=== PATIENT | female | born 1965 | race Caucasian/White ===

== ENCOUNTER → 2016-10-22 | Outpatient (CLI) | payer BC ==
[~2016-10-22] MED LIST: ALBUAER19 INH; ATOR-24 PO; GLYB-108 PO; METF-384 PO
[2016-10-22 11:29] LABS: BASO % 0.5 %; BASO ABS # 0.03 K/uL (0-0.2); COMPLETE YES; EOS % 2.1 %; HEMATOCRIT 42.3 % (37-47); LYMPH % 41.3 %; LYMPH ABS # 2.31 K/uL (1.2-3.4); MEAN CELL VOLUME 91.2 fL (80-100); MEAN CORPUSCULAR HEMOGLOBIN 30.6 pg (25-34); MEAN CORPUSCULAR HGB CONC 33.6 g/dl (32-36); MEAN PLATELET VOLUME 9.3 fL (7.4-10.4); MONO % 6.4 %; NEUT % 49.7 %; PLATELET COUNT 279 K/uL (130-400); RED BLOOD COUNT 4.64 M/uL (4.2-5.4)
[2016-10-22 11:40] LABS: ALT/SGPT 29 U/L (12-78); BLOOD UREA NITROGEN 14 mg/dl (7-18); BUN/CREATININE RATIO 17.3 (10-20); CARBON DIOXIDE 25 mmol/L (21-32); CHLORIDE 108 mmol/L (98-107); CHOLESTEROL 129 mg/dl (0-200); CREATININE 0.83 mg/dl (0.60-1.20); ESTIMATED AVERAGE GLUCOSE 137 mg/dl; GLUCOSE 124 mg/dl (70-99); HA1C FLAG Normal (Normal); POTASSIUM 3.8 mmol/L (3.5-5.1); SODIUM 143 mmol/L (136-145)
[2016-10-22 11:50] LABS: ALB/GLOB RATIO 1.2 (0.9-2); ALKALINE PHOSPHATASE 75 U/L (45-117); AST/SGOT 20 U/L (15-37); CHOLESTEROL/HDL RATIO 2.2; HDL CHOLESTEROL 59 mg/dl; LDL CHOLESTEROL CALCULATED 52 mg/dl; THYROID STIMULATING HORMONE 0.715 uIu/ml (0.300-4.500); TRIGLYCERIDES 91 mg/dl (0-150); VERY LOW DENSITY LIPOPROT CALC 18 mg/dl
== END | disposition home or self-care (01) ==
LOC: C.LABBC 09:09
PROVIDERS: ATTEND Internal Medicine
DX: E11.9 Type 2 diabetes mellitus without complications (principal); E78.00 Pure hypercholesterolemia, unspecified

== ENCOUNTER → 2017-05-05 | Outpatient (CLI) | payer BC ==
[2017-05-05 13:28] LABS: URINE APPEARANCE CLEAR (CLEAR); URINE BILIRUBIN NEG (NEG); URINE COLOR YELLOW; URINE EPITHELIAL CELL AUTO 0-5 /lpf (0-5); URINE NITRITE NEG (NEG); URINE SPECIFIC GRAVITY 1.014 (1.000-1.030); UROBILINOGEN NEG (NEG); ZZUR CULT IF INDIC CLEAN CATCH NO
[2017-05-05 13:36] LABS: MANUAL MICROSCOPIC REQUIRED? NO; REVIEW REQ? NO
[2017-05-05 13:45] LABS: ESTIMATED AVERAGE GLUCOSE 140 mg/dl; HA1C FLAG Normal (Normal)
[2017-05-05 14:24] LABS: ALT/SGPT 21 U/L (12-78); BLOOD UREA NITROGEN 12 mg/dl (7-18); BUN/CREATININE RATIO 14.7 (10-20); CALCIUM 9.1 mg/dl (8.5-10.1); CARBON DIOXIDE 28 mmol/L (21-32); CHLORIDE 107 mmol/L (98-107); CHOLESTEROL 105 mg/dl (0-200); CREATININE 0.78 mg/dl (0.60-1.20); GLUCOSE 122 mg/dl (70-99); HDL CHOLESTEROL 53 mg/dl; LDL CHOLESTEROL CALCULATED 29 mg/dl; POTASSIUM 3.8 mmol/L (3.5-5.1); SODIUM 141 mmol/L (136-145); TRIGLYCERIDES 115 mg/dl (0-150); VERY LOW DENSITY LIPOPROT CALC 23 mg/dl
[2017-05-05 14:28] LABS: ALB/GLOB RATIO 1.2 (0.9-2); ALKALINE PHOSPHATASE 83 U/L (45-117); AST/SGOT 15 U/L (15-37)
== END | disposition home or self-care (01) ==
LOC: C.LABBC 09:22
PROVIDERS: ATTEND Physician Assistant Medical
DX: E11.9 Type 2 diabetes mellitus without complications (principal)

== ENCOUNTER → 2017-11-10 | Outpatient (CLI) | payer BC ==
[2017-11-10 11:14] LABS: HEMOGLOBIN A1C 6.7 % (4.5-5.6)
== END | disposition home or self-care (01) ==
LOC: C.LABBC 09:09
PROVIDERS: ATTEND Internal Medicine
DX: E11.9 Type 2 diabetes mellitus without complications (principal)

== ENCOUNTER 2025-08-13 07:28 | Observation (INO) ==
--- NOTE | 2025-08-13 08:35 | Emergency Department Note ---
Impression & Plan Dental abscess The patient was educated regarding today's findings. Conservative care measures were discussed. IV was established. Labs were obtained. CBC shows a normal white count. Chemistry panel shows essentially normal electrolytes. Normal BUN and creatinine. Unremarkable LFTs. Glucose at this time is 123. Consultation was obtained from Dr. Marroquin from oral maxillofacial. CT scan results were reviewed with him. Due to the patient being a diabetic and her current condition, he recommended admission with extraction of the tooth and decompression of the abscess tomorrow in the OR. The patient is agreeable. Hospitalist service was consulted for admission. Please see that dictation for final management. She was given Unasyn 3 g IV while in the ED. preoperative chest x-ray was also obtained. This was unremarkable. Care plan was discussed with Dr. Santana. ED Provider Note CHIEF COMPLAINT: Dental pain HISTORY OF PRESENT ILLNESS: This 60-year-old white female patient has had a progressive toothache for 3 days. she denies any trauma. She initially noticed swelling on her left lower jaw Thursday. It became worse on Thursday. She tried to use cold compresses on the area throughout the day on Thursday hopes it would resolve. Her pain increased. She denies any fevers or chills. She woke this morning with increased swelling in her lower jaw and significant discomfort. She is having difficulty opening her jaw secondary to discomfort in the mandible. She denies any difficulty swallowing. No difficulty with breathing or speech. The pain is now steady and severe and radiates to the cheek. She has been unable to see a dentist. Denies chills, sweats, or fever. No nausea or vomiting. there is a foul taste. Pain is 5/10. A male awning installer accompanies her today. REVIEW OF SYSTEMS: Head: No headache, injury or neck pain. Throat: No sore throat, dysphagia, or hoarseness. Neck: No stiffness, or swelling. Respiratory: No cough, change in sputum, wheezes, hemoptysis, shortness of breath, or stridor. PHYSICAL EXAM: Vital Signs: Temperature 36.0 pulse 113 BP 106/67 respirations 18 O2 sat 95% on room air. General: Well-developed, well-nourished, middle-aged white female, in no acute distress. She appears in some discomfort. she is sitting on a bed. Alert and oriented. Skin: Warm and dry with good turgor. No rashes or lesions. No ecchymosis or erythema. The patient is not diaphoretic. No abrasions. HEENT: Normocephalic atraumatic. Eyes PERRLA, EOMI. No conjunctiva or scleral injection. Nares patent bilaterally without turbinate enlargement. No significant drainage. No epistaxis. Oropharynx without erythema or exudate. Uvula midline, oral mucosa moist. No lesions present. The tooth in question, #18, is very carious and has a large portion of the central tooth missing. The gum tissue is tender around it. No edema or pointing. It is nonfluctuant. Tooth is not loose. Blood is expressible from the central tooth through the cavity, with pressure on the gumline. There is facial swelling as well as cervical lymphadenopathy. Heart: Heart RRR. No MGR. Peripheral pulses are 2+. Lungs: Lungs are clear to auscultation. No crackles rhonchi or wheezing. Good air movement. The patient is able to take a deep breath. Musculoskeletal: Gross motor function of the upper and lower extremities is intact and unremarkable. Data: CT scan imaging of the face, specifically looking at the mandible, was obtained. This was interpreted by me and read by radiology. The patient has indication for a 2.8cm x 0.3cm left mandibular dental abscess. There is also suspicion for developing cellulitis. DIAGNOSIS: left mandible dental abscess Past Med/Surg History Problem List (Updated 08/17/25 @ 16:13 by Wyatt Champion PA-C) Dental abscess (Acute) Acute dentin caries Bacterial oral infection History of colon polyps Asthma-COPD overlap syndrome Bronchiolitis Cough History of tobacco use Healthcare maintenance Hyperlipidemia (Chronic) Depression (Chronic) Type 2 diabetes mellitus (Chronic) Medical History Mandibular abscess Facial infection Migraines Asthma-COPD overlap syndrome well controlled w/ daily inhaler Hx of migraines HX- no issues > 22 yrs Hyperlipidemia Diabetes Surgical History History of incision and drainage (08/14/25) Left Sided Facial Incision and Drainage(Left) - Jose Marroquin DMD s Extraction of Teeth #6, 18(Left) - Jose Marroquin, DMD Hx of shoulder surgery RIGHT Hx of colonoscopy History of dilatation and curettage Family History Mother Myocardial infarction Asthma Hypertension Mother Chronic renal failure Coronary heart disease Diabetes Myocardial infarction Grandmother (Maternal) Cancer Brother Diabetes Hypertension Grandmother (Paternal) Hodgkins disease Father Hypertension Hypercholesterolemia Denies family history of Ovarian cancer Prostate cancer Breast cancer Colorectal cancer Social History Smoking Status: Current every day smoker Tobacco Type: Cigarettes Age Started Using Tobacco: 15; packs per day: 1; Cigarettes Per Day: 17 per day - advised; Second Hand Exposure: No; Do You Dip or Chew Tobacco: No; Hx Alcohol Use: No Hx Substance Use: No Preferred Language: Bengali Communication Ability: Effective Visual Impairment: No Limitations Hearing Ability: Normal Harvest Supervisor Required: No Beliefs That Will Affect Care: None marital status: Single Current Living Situation: Significant Other current occupational status: employed Feels Safe at Home: Yes Childhood Exposure to Second-Hand Smoke: No Diet: diabetic and regular caffeine: Yes Dental Care, Regularly: No Physical Activity Frequency: Daily Seatbelt Use: always Sunscreen Use: Yes Assistive Devices: Cane Allergies Allergies Allergy/AdvReac Type Severity Reaction Status Date / Time simvastatin AdvReac Intermediate MYALGIAS Verified 08/14/25 11:12 erythromycin base AdvReac Mild Nausea Verified 08/14/25 11:12 Home Meds Home Medications Medication Instructions Recorded Confirmed mecobalamin (vitamin B12) 1,000 1,000 mcg PO DAILY 04/28/24 08/13/25 mcg chewable tablet Previous Rx's Medication Instructions Recorded blood sugar diagnostic #100 ea 05/09/22 Flutter Valve #1 ea 03/02/23 albuterol sulfate 90 mcg/actuation 2 puff inhalation QID PRN 09/17/23 aerosol inhaler (Ventolin HFA) shortness of breath or wheezing #6.7 grams atorvastatin 40 mg tablet 40 mg PO DAILY #90 tabs 09/16/24 metformin 1,000 mg tablet 1,000 mg PO BID #180 tabs 10/03/24 dulaglutide 1.5 mg/0.5 mL See Rx Instructions subcut 01/04/25 subcutaneous pen injector .COMPLEX #6 mL fluticasone fur. 100 mcg-umeclid 1 inh inhalation DAILY #3 Inhalers 01/04/25 62.5 mcg-vilant 25 mcg inhalat.powder (Trelegy Ellipta) aspirin 81 mg tablet 81 mg PO DAILY #90 tabs 08/10/25 amoxicillin 875 mg-potassium 1 tab PO BID 7 days #14 tabs 08/15/25 clavulanate 125 mg tablet tramadol 50 mg tablet 50 mg PO BID PRN pain #6 tabs 08/15/25 Results & Data (ED) Vital Signs Vital Signs - 24 hr 08/13/25 07:34 Temperature 36 C L Temperature Source Temporal Artery Scan Pulse Rate 113 H Respiratory Rate 18 Respiratory Effort / Characteristics Non-Labored Respiratory Depth Normal Respiratory Pattern Regular Blood Pressure 106/67 Blood Pressure Mean 80 Pulse Oximetry 95 Oxygen Delivery Method Room Air Sepsis Recent Fever Within 48 Hours No Sepsis New/Unexplained Change in Mental Status N/A Sepsis Action Taken by Nursing No Action Required Home Medications Current Medication List: was personally reviewed by me Laboratory Data 08/14/25 06:16 08/14/25 06:16 Lab Results 08/13/25 Range/Units 08:20 WBC 9.18 (4.8-10.8) K/ul RBC 4.66 (4.20-5.40) M/uL Hgb 14.5 (12.0-16.0) g/dL Hct 43.7 (37.0-47.0) % MCV 93.8 (80.0-100.0) fL MCH 31.1 (25.0-34.0) pg MCHC 33.2 (32.0-36.0) g/dL RDW Std Deviation 47.0 H (36.4-46.3) fL RDW Coeff of Ellen 13.6 (11.5-14.5) % Plt Count 239 (130-400) K/uL MPV 9.5 (9.4-12.4) fL Immature Gran % (Auto) 0.4 % Neut % (Auto) 74.2 % Lymph % (Auto) 15.3 % Barrow % (Auto) 8.9 % Eos % (Auto) 0.7 % Baso % (Auto) 0.5 % Neut # (Auto) 6.81 H (1.40-6.50) K/uL Lymph # (Auto) 1.40 (1.20-3.40) K/uL Barrow # (Auto) 0.82 H (0.11-0.59) K/uL Eos # (Auto) 0.06 (0.00-0.50) K/uL Baso # (Auto) 0.05 (0.00-0.20) K/uL Immature Gran # (Auto) 0.04 (0.01-0.20) K/uL Sodium 141 (136-145) mmol/L Potassium 3.9 (3.5-5.1) mmol/L Chloride 109 H (98-107) mmol/L Carbon Dioxide 24 (21-32) mmol/L Anion Gap 8 (3-11) BUN 9 (6-23) mg/dl Creatinine 0.67 (0.6-1.2) mg/dl Est Cr Clr Drug Dosing 82.5 ml/min eGFR 99.38 BUN/Creatinine Ratio 13.4 (10-20) Glucose 123 H (70-99(Fasting)) mg/dl Calcium 9.2 (8.6-10.3) mg/dl Total Bilirubin 0.5 (0.2-1.0) mg/dl Direct Bilirubin 0.1 (0-0.2) mg/dl AST 9 L (13-39) U/L ALT 6 L (7-52) U/L Alkaline Phosphatase 59 (34-104) U/L Total Protein 6.8 (6.0-8.3) gm/dl Albumin 4.1 (3.4-5.0) gm/dl Globulin 2.7 (2.5-4.0) gm/dl Albumin/Globulin Ratio 1.5 (0.9-2) Administered Medications Discontinued Medications Atorvastatin Calcium (Atorvastatin 40 Mg Tab) 40 mg PO DAILY [facility] Stop: 09/13/25 08:59 Last Admin: 08/15/25 08:44 Dose: 40 mg Documented By: Admin: 08/14/25 07:44 Dose: Not Given Documented By: DOROTA Bupivacaine HCl (Bupivacaine/Epinephrine 0.5% 1:200,000 1.8 Ml Carp) Confirm Administered Dose 10.8 ml .ROUTE .[facility] ONE Stop: 08/14/25 11:18 Last Admin: 08/14/25 01:08 Dose: 3 ml Documented By: ARLENE Bupivacaine HCl/Epinephrine Bitart (Bupivacaine/Epinephrine 0.5% Mpf 1:200,000 10 Ml Vial) Confirm Administered Dose 30 ml .ROUTE .[facility]-MED ONE Stop: 08/14/25 11:33 Last Admin: 08/14/25 13:32 Dose: Not Given Documented By: DOROTA Chlorhexidine Gluconate (Chlorhexidine Gluconate 0.12% 480 Ml) 15 ml MT Q3HWA PRN PRN Reason: Prophylaxis Stop: 09/12/25 17:21 Last Admin: 08/14/25 21:07 Dose: 15 ml Documented By: KALEIGH Cyanocobalamin (Cyanocobalamin (B-12) 500 Mcg Tablet) 1,000 mcg PO DAILY SCOTT Stop: 09/13/25 08:59 Last Admin: 08/15/25 08:43 Dose: 1,000 mcg Documented By: Admin: 08/14/25 07:44 Dose: Not Given Documented By: DOROTA Fluticasone Furoate (Fluticasone Furoate 100mcg 14 Puffs/Inhaler) 1 puffs INH DAILY SCOTT Stop: 09/13/25 08:59 Last Admin: 08/15/25 08:43 Dose: 1 puffs Documented By: Admin: 08/14/25 07:58 Dose: 1 puffs Documented By: DOROTA Ampicillin Sodium/Sulbactam Sodium (Unasyn) 3,000 mg in 100 mls @ 200 mls/hr IV NOW STA Stop: 08/13/25 10:17 Last Infusion: 08/13/25 10:34 Dose: Infused Documented By: Admin: 08/13/25 09:57 Dose: 200 mls/hr Documented By: WES Lactated Ringer's (Lr) 1,000 mls @ 80 mls/hr IV .[id number] SCOTT Stop: 08/14/25 18:29 Last Infusion: 08/14/25 17:06 Dose: Infused Documented By: Admin: 08/14/25 05:50 Dose: 80 mls/hr Documented By: NICOLE Ampicillin Sodium/Sulbactam Sodium (Unasyn) 3,000 mg in 100 mls @ 200 mls/hr IV Q6H SCOTT Stop: 08/23/25 15:59 Last Infusion: 08/15/25 10:59 Dose: Infused Documented By: Admin: 08/15/25 10:04 Dose: 200 mls/hr Documented By: Infusion: 08/15/25 05:51 Dose: Infused Documented By: Admin: 08/15/25 05:19 Dose: 200 mls/hr Documented By: Infusion: 08/14/25 21:46 Dose: Infused Documented By: Admin: 08/14/25 21:05 Dose: 200 mls/hr Documented By: Infusion: 08/14/25 16:31 Dose: Infused Documented By: Admin: 08/14/25 16:00 Dose: 200 mls/hr Documented By: Infusion: 08/14/25 10:11 Dose: Infused Documented By: Admin: 08/14/25 09:41 Dose: 200 mls/hr Documented By: Infusion: 08/14/25 04:05 Dose: Infused Documented By: Admin: 08/14/25 03:21 Dose: 200 mls/hr Documented By: Infusion: 08/13/25 23:13 Dose: Infused Documented By: Admin: 08/13/25 22:22 Dose: 200 mls/hr Documented By: Infusion: 08/13/25 18:08 Dose: Infused Documented By: nemo Admin: 08/13/25 17:35 Dose: 200 mls/hr Documented By: nemo Acetaminophen (Ofirmev) 1,000 mg in 100 mls @ 400 mls/hr IV Q8H PRN PRN Reason: Fever/Mild Pain Stop: 08/16/25 12:48 Last Infusion: 08/13/25 13:35 Dose: Infused Documented By: Admin: 08/13/25 13:20 Dose: 400 mls/hr Documented By: [email or web address] Insulin Aspart (Insulin Aspart Per Unit Charge) 0 units SC ACHS SCOTT Stop: 09/12/25 12:48 Last Admin: 08/13/25 23:11 Dose: Not Given Documented By: NICOLE Co-signed By: ALFONSO Admin: 08/13/25 17:29 Dose: Not Given Documented By: nemo Co-signed By: BARBIE Admin: 08/13/25 15:47 Dose: Not Given Documented By: nemo Co-signed By: BARBIE Insulin Aspart (Insulin Aspart Per Unit Charge) 0 units SC Q6 SCOTT Stop: 09/13/25 00:00 Last Admin: 08/14/25 11:48 Dose: Not Given Documented By: Admin: 08/14/25 05:55 Dose: Not Given Documented By: NICOLE Co-signed By: ALFONSO Admin: 08/14/25 00:21 Dose: Not Given Documented By: NICOLE Co-signed By: KARL Insulin Aspart (Insulin Aspart Per Unit Charge) 0 units SC ACHS [facility] Stop: 09/13/25 16:29 Last Admin: 08/15/25 12:10 Dose: Not Given Documented By: Admin: 08/15/25 08:42 Dose: 4 units Documented By: WENDY Co-signed By: BLAKE Admin: 08/14/25 21:05 Dose: 2 units Documented By: KALEIGH Co-signed By: león Admin: 08/14/25 17:07 Dose: 4 units Documented By: DOROTA Co-signed By: AMBROSIO Ioversol (Optiray 320 100ml) 95 ml IV ONCE ONE Stop: 08/13/25 09:31 Last Admin: 08/13/25 09:30 Dose: 95 ml Documented By: WOLFGANG Ketorolac Tromethamine (Ketorolac Tromethamine 15 Mg/Ml Vial) 10 mg IV Q6H PRN PRN Reason: Pain, second line Stop: 08/18/25 15:49 Last Admin: 08/14/25 14:00 Dose: 10 mg Documented By: Admin: 08/14/25 07:55 Dose: 10 mg Documented By: Admin: 08/13/25 23:02 Dose: 10 mg Documented By: Admin: 08/13/25 17:35 Dose: 10 mg Documented By: nemo Miscellaneous (Remove Nicoderm Patch) 1 each N/A DAILY@[id number] [facility] Stop: 09/13/25 08:58 Last Admin: 08/15/25 08:45 Dose: 1 each Documented By: Admin: 08/14/25 07:57 Dose: 1 each Documented By: DOROTA Nicotine (Nicotine 14 Mg/24 Hr Patch) 1 patch TD NOW [facility] Stop: 08/13/25 10:45 Last Admin: 08/13/25 11:11 Dose: 1 patch Documented By: JENNIFER Nicotine (Nicotine 14 Mg/24 Hr Patch) 1 patch TD [facility] Stop: 09/13/25 08:59 Last Admin: 08/15/25 08:44 Dose: 1 patch Documented By: Admin: 08/14/25 07:57 Dose: 1 patch Documented By: DOROTA Potassium Chloride (Potassium Chloride Crtab 20 Meq Tabcr) 20 meq PO NOW STA Stop: 08/14/25 16:13 Last Admin: 08/14/25 17:09 Dose: 20 meq Documented By: DOROTA Tramadol HCl (Tramadol Hcl 50 Mg Tablet) 50 mg PO Q4H PRN PRN Reason: Pain Stop: 09/13/25 16:56 Last Admin: 08/15/25 05:53 Dose: 50 mg Documented By: Admin: 08/14/25 21:07 Dose: 50 mg Documented By: Admin: 08/14/25 17:07 Dose: 50 mg Documented By: DOROTA Umeclidinium/Vilanterol (Umeclidinium/Vilanterol 62.5/25mcg 7 Puffs/Inhaler) 1 puffs INH DAILY SCOTT Stop: 09/13/25 08:59 Last Admin: 08/15/25 08:43 Dose: 1 puffs Documented By: Admin: 08/14/25 07:58 Dose: 1 puffs Documented By: DOROTA Imaging Data Radiologist's Impression: Face CT 08/13/25 08:17 Clinical history: Mandibular swelling Technique: Axial computed tomography images were obtained of the facial bones after the administration of intravenous contrast. Sagittal and coronal reconstructions were obtained Findings: There is mild enlargement of the left submandibular salivary gland with mild adjacent soft tissue stranding. There is subcutaneous edema of the left jaw. There is a 2.8 x 0.3 cm collection of fluid along the lateral cortex of the left mandibular body, likely an abscess. No definite foreign body is seen. There are scattered small lymph nodes without overt adenopathy No fracture is identified. No focal osseous lesion is noted. There is no definite sign of osteomyelitis. There is mild maxillary sinus mucosal thickening. The remainder of the paranasal sinuses appear clear without significant mucosal thickening, fluid, retention cyst, or mass. The ostiomeatal units are narrowed by mucosal thickening but patent bilaterally. The mastoid air cells appear clear The orbits appear unremarkable. No foreign body is seen. The nasal septum is deviated. No definite nasal polyp is noted Impression: 1. 2.8 x 0.3 cm suspected abscess along the lateral surface of the left mandible 2. Suspected mild inflammation of the left submandibular salivary gland and cellulitis of the left cheek ACT 112: Positive. There are findings on this exam that require communication between the performing entity and the patient following Patient Test Result Information Act ([place] ACT 112) guidelines. Electronically signed by iMch Spencer 08-13-2025 09:50 AM Discharge Plan Visit Data Chief Complaint: Dental/Oral Stated Complaint: FACE SWOLLEN ED Provider: Apollo Santana ED Midlevel Provider: Wyatt Champion Discharge Problem: Dental abscess Patient Disposition: Admitted As Inpatient Condition: Good Discharge Instructions Interventions: ED Discharge Assessment Last Done: 08/13/25 12:49
[2025-08-13 08:57] LABS: Hematocrit (blood only) 43.7 % (37.0-47.0); Hemoglobin 14.5 g/dL (12.0-16.0); Immature Granulocytes # (auto) 0.04 K/uL (0.01-0.20); Immature Granulocytes % (auto) 0.4 %; Mean Corpuscular Hemoglobin 31.1 pg (25.0-34.0); Mean Corpuscular Volume 93.8 fL (80.0-100.0); Platelet Count 239 K/uL (130-400); RDW Standard Deviation 47.0 fL (36.4-46.3); Red Blood Count 4.66 M/uL (4.20-5.40); White Blood Count 9.18 K/ul (4.8-10.8)
[2025-08-13 09:01] LABS: Alanine Aminotransferase 6.0 U/L (7-52); Albumin Globulin Ratio 1.5 (0.9-2); Albumin Level 4.1 gm/dl (3.4-5.0); Alkaline Phosphatase 59.0 U/L (34-104); Anion Gap 8.0 (3-11); Bilirubin,Total 0.5 mg/dl (0.2-1.0); Blood Urea Nitrogen 9.0 mg/dl (6-23); Calcium 9.2 mg/dl (8.6-10.3); Carbon Dioxide 24.0 mmol/L (21-32); Chloride 109.0 mmol/L (98-107); Creatinine Clr Calc Pharmacy 82.5 ml/min; Globulin 2.7 gm/dl (2.5-4.0); Glucose 123.0 mg/dl (70-99(Fasting)); Potassium 3.9 mmol/L (3.5-5.1); Sodium 141.0 mmol/L (136-145); Total Protein 6.8 gm/dl (6.0-8.3)
[2025-08-13] MEDS: OPTIRAY 320 100ml IV ONE (09:30)
--- NOTE | 2025-08-13 09:50 | CT Scan Report ---
Clinical history: Mandibular swelling Technique: Axial computed tomography images were obtained of the facial bones after the administration of intravenous contrast. Sagittal and coronal reconstructions were obtained Findings: There is mild enlargement of the left submandibular salivary gland with mild adjacent soft tissue stranding. There is subcutaneous edema of the left jaw. There is a 2.8 x 0.3 cm collection of fluid along the lateral cortex of the left mandibular body, likely an abscess. No definite foreign body is seen. There are scattered small lymph nodes without overt adenopathy No fracture is identified. No focal osseous lesion is noted. There is no definite sign of osteomyelitis. There is mild maxillary sinus mucosal thickening. The remainder of the paranasal sinuses appear clear without significant mucosal thickening, fluid, retention cyst, or mass. The ostiomeatal units are narrowed by mucosal thickening but patent bilaterally. The mastoid air cells appear clear The orbits appear unremarkable. No foreign body is seen. The nasal septum is deviated. No definite nasal polyp is noted Impression: 1. 2.8 x 0.3 cm suspected abscess along the lateral surface of the left mandible 2. Suspected mild inflammation of the left submandibular salivary gland and cellulitis of the left cheek ACT 112: Positive. There are findings on this exam that require communication between the performing entity and the patient following Patient Test Result Information Act ([place] ACT 112) guidelines. Electronically signed by Mich Spencer 08-13-2025 09:50 AM
[2025-08-13] MEDS: AMPICILLIN/SULBACTAM SOD 3,000 MG/100 ML BAG IV STA (09:57)
--- NOTE | 2025-08-13 10:05 | History & Physical Report ---
Date of Service August 13, 2025 Assessment & Plan (1) Mandibular abscess: (2) Acute dentin caries: (3) Type 2 diabetes mellitus: (4) History of tobacco use: (5) Asthma-COPD overlap syndrome: Plan This patient is a 60-year-old female who presented on 08/13 with a left mandibular tooth abscess. #Mandibular abscess Face CT revealed a 2.8 x 0.3 cm abscess along the lateral surface of the left mandible, with salivary gland inflammation and left cheek cellulitis Oromaxillary facial consult appreciated Will plan to take patient to the OR on 08/14 N.p.o. at midnight + IVF starting tomorrow Preop EKG and CXR ordered, pending Unasyn 3000 mg IV q6h IV pain control PRN IV antiemetics PRN #T2DM Last A1c at 6.3% on 06/14/2025 Hold metformin, dulaglutide SSI; with target BSG range 110-140mg/dL, CF 45, carb ratio 15 BSG ACHS, with plan to convert to every 6 hours once she is made n.p.o. T2DM diet BSG ACHS Adjust regimen as needed #H/o coronary and aortic atherosclerosis No h/o stents, per patient Will plan to hold aspirin on the morning of procedure #Tobacco use Current everyday tobacco cigarette smoker; 1 PPD Nicotine patch while inpatient Continue to encourage cessation #AsthmaCOPD overlap syndrome Continue home inhalers #HLD Continue atorvastatin Disposition: [facility] PPx: Hold chemical DVT PPx prior to procedure; SCDs Note: Patient requesting a work excuse upon discharge. 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 History of Present Illness Chief Complaint: Dental/oral pain Primary Care Provider: Rory Santiago MD Mrs. Love is a 60-year-old female with PMH of T2DM, HLD, depression, and tobacco use. 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 Patient first noticed the pain and swelling in her left lower jaw on Thursday evening. Since that time, it has progressively worsened, and now the pain is starting to radiate down the side of her left anterior neck. She has been taking 4 ibuprofen tablets every 6 hours as needed for pain, and applying an ice pack to her jaw, which has been helping.. However, she notes she may have developed chills and night sweats last night became concerned. While she does not have difficulty swallowing, she has been trying to eat soft foods, and only drink fluids. She has not had anything to eat today. She denies any respiratory distress or difficulty breathing. Patient has not been into see a dentist in the past 4 to 5 years. She did not take her regular morning medicine today, as she was unsure what was going to happen. Only recent medication change is that her aspirin was decreased from 325 mg daily to 81 mg daily. Patient is unsure why she takes aspirin, but believes it is due to his smoking. Patient is a current everyday tobacco cigarette smoker; 1 PPD. She denies chewing tobacco. Occupation: Schoolbus route relief driver; requesting work excuse on discharge. Patient reports she has not allergy to erythematous and; denies history of allergies to penicillins. Patient's vitals are stable at time of admission. ED course: Unasyn 3000 mg IV x 1 ROS: Patient endorses left jaw pain, chills, headache, dry cough (attributes to smoking). Patient denies fever, dizziness, lightheadedness, tinnitus, changes in vision, difficulty swallowing, neck pain, chest pain, chest palpitations, SOB, ADAME, pleuritic CP, abdominal pain, or N/V/D. Allergies Allergy/AdvReac Type Severity Reaction Status Date / Time erythromycin base AdvReac Unknown Nausea Verified 08/10/25 10:45 simvastatin AdvReac Unknown MYALGIAS Verified 08/10/25 10:45 Home Medications Medication Instructions Recorded Confirmed Type blood sugar diagnostic #100 ea 05/09/22 08/13/25 Rx Flutter Valve #1 ea 03/02/23 08/13/25 Rx albuterol sulfate 90 mcg/actuation 2 puff inhalation QID PRN 09/17/23 08/13/25 Rx aerosol inhaler (Ventolin HFA) shortness of breath or wheezing #6.7 grams mecobalamin (vitamin B12) 1,000 1,000 mcg PO DAILY 04/28/24 08/13/25 History mcg chewable tablet atorvastatin 40 mg tablet 40 mg PO DAILY #90 tabs 09/16/24 08/13/25 Rx metformin 1,000 mg tablet 1,000 mg PO BID #180 tabs 10/03/24 08/13/25 Rx dulaglutide 1.5 mg/0.5 mL See Rx Instructions subcut 01/04/25 08/13/25 Rx subcutaneous pen injector .COMPLEX #6 mL fluticasone fur. 100 mcg-umeclid 1 inh inhalation DAILY #3 Inhalers 01/04/25 08/13/25 Rx 62.5 mcg-vilant 25 mcg inhalat.powder (Trelegy Ellipta) aspirin 81 mg tablet 81 mg PO DAILY #90 tabs 08/10/25 08/13/25 Rx Past Med/Surg History Problem List (Updated 08/13/25 @ 10:56 by Steven Paulino PA-C) Mandibular abscess Facial infection Acute dentin caries Bacterial oral infection History of colon polyps Asthma-COPD overlap syndrome Bronchiolitis Cough History of tobacco use Healthcare maintenance Hyperlipidemia (Chronic) Depression (Chronic) Type 2 diabetes mellitus (Chronic) Medical History (Updated 08/13/25 @ 10:56 by Steven Paulino PA-C) Migraines Asthma-COPD overlap syndrome well controlled w/ daily inhaler Hx of migraines HX- no issues > 22 yrs Hyperlipidemia Diabetes Surgical History Hx of shoulder surgery RIGHT Hx of colonoscopy History of dilatation and curettage Family History Mother Myocardial infarction Asthma Hypertension Mother Chronic renal failure Coronary heart disease Diabetes Myocardial infarction Grandmother (Maternal) Cancer Brother Diabetes Hypertension Grandmother (Paternal) Hodgkins disease Father Hypertension Hypercholesterolemia Denies family history of Ovarian cancer Prostate cancer Breast cancer Colorectal cancer Social History Smoking Status: Current every day smoker Tobacco Type: Cigarettes Age Started Using Tobacco: 15; packs per day: 1; Cigarettes Per Day: 17 per day - advised; Second Hand Exposure: No; Do You Dip or Chew Tobacco: No; Hx Alcohol Use: No Hx Substance Use: No Preferred Language: Irish Communication Ability: Effective Visual Impairment: No Limitations Hearing Ability: Normal Curriculum Assistant Required: No Beliefs That Will Affect Care: None marital status: Single Current Living Situation: Significant Other current occupational status: employed Feels Safe at Home: Yes Childhood Exposure to Second-Hand Smoke: No Diet: diabetic and regular caffeine: Yes Dental Care, Regularly: No Physical Activity Frequency: Daily Seatbelt Use: always Sunscreen Use: Yes Assistive Devices: Glasses Review of Systems Review of Systems: See HPI above Physical Exam Physical Exam: General: no acute distress; pleasant affect; significant other at bedside; non- toxic appearing; cooperative; SpO2 97% on RA HEENT: normocephalic, atraumatic; PERRLA; vision and hearing intact Mouth: Positive trismus; mucosa coral pink; no drainage appreciated; unable to fully visualize the uvula; however, airway appears patent; erythema and soft tissue swelling on the floor of the mouth and left send mandibular region; poor dentition; dental carry/broken tooth on the 1st molar (tooth #18) Neck: supple; positive submandibular and anterior chain lymphadenopathy; trachea midline Skin: warm, dry without signs of tenting; no cyanosis; no rashes, bruising, lesions, or erythema noted CV: chest wall NTP; RRR; S1/S2 normal; no murmurs/rubs/gallops; pulses intact and symmetric at radial, DP, and PT Lungs: no acute respiratory distress; symmetrical chest wall expansion; clear breath sounds across all lung doan w/o adventitious sounds; no wheezing ABD: Soft, NTP; BS present; no rebound/guarding; no distention MSK: no tics or fasciculations; no edema noted in the LEs b/l, nonerythematous Neuro: A&Ox3; normal mood and affect; fluent speech Results & Data Results & Data Vital Signs (Past 12 Hours) Vital Signs Temp Pulse Pulse Resp BP BP Pulse Ox 08/13/25 09:57 93 H 16 119/72 97 08/13/25 07:34 36 C L 113 H 18 106/67 95 O2 Del Method 08/13/25 09:57 Room Air 08/13/25 07:34 Room Air Laboratory Results Abnormal lab results 08/13/25 Range/Units 08:20 RDW Std Deviation 47.0 H (36.4-46.3) fL Neut # (Auto) 6.81 H (1.40-6.50) K/uL [place] # (Auto) 0.82 H (0.11-0.59) K/uL Chloride 109 H (98-107) mmol/L Glucose 123 H (70-99(Fasting)) mg/dl AST 9 L (13-39) U/L ALT 6 L (7-52) U/L Diagnostic Findings Face CT 08/13/25 08:17 Clinical history: Mandibular swelling Technique: Axial computed tomography images were obtained of the facial bones after the administration of intravenous contrast. Sagittal and coronal reconstructions were obtained Findings: There is mild enlargement of the left submandibular salivary gland with mild adjacent soft tissue stranding. There is subcutaneous edema of the left jaw. There is a 2.8 x 0.3 cm collection of fluid along the lateral cortex of the left mandibular body, likely an abscess. No definite foreign body is seen. There are scattered small lymph nodes without overt adenopathy No fracture is identified. No focal osseous lesion is noted. There is no definite sign of osteomyelitis. There is mild maxillary sinus mucosal thickening. The remainder of the paranasal sinuses appear clear without significant mucosal thickening, fluid, retention cyst, or mass. The ostiomeatal units are narrowed by mucosal thickening but patent bilaterally. The mastoid air cells appear clear The orbits appear unremarkable. No foreign body is seen. The nasal septum is deviated. No definite nasal polyp is noted Impression: 1. 2.8 x 0.3 cm suspected abscess along the lateral surface of the left mandible 2. Suspected mild inflammation of the left submandibular salivary gland and cellulitis of the left cheek ACT 112: Positive. There are findings on this exam that require communication between the performing entity and the patient following Patient Test Result Information Act ([place] ACT 112) guidelines. Electronically signed by Mich Spencer 08-13-2025 09:50 AM ECG Additional Comments: ECG ordered, pending Code Status & VTE Plan Code Status Full code PG Care Time/CCT Total # of Minutes Spent Total Time Spent with Patient: Total time spent is greater than 50% in coordination of care (as documented) at patient's floor/unit and/or counseling patient: C[place] [address] INT INP/OBS CARE 3/75MIN Patient Type Established History Comprehensive Exam Comprehensive Medical Decision Making High Complexity Diagnoses Mandibular abscess M27.2 Acute dentin caries K02.9 Type 2 diabetes mellitus without complication, without long-term current use of insulin E11.9 Diabetes mellitus residential insulin use: without superintendent terminal use Diabetes mellitus complication status: without complication History of tobacco use Z87.891 Asthma-COPD overlap syndrome J44.89 (3) Type 2 diabetes mellitus Diabetes mellitus residential insulin use: without superintendent terminal use Diabetes mellitus complication status: without complication Qualified Code(s): E11.9 - Type 2 diabetes mellitus without complications
--- NOTE | 2025-08-13 10:49 | Oral/Maxillofacial Consult ---
Date of Consultation August 13, 2025 Assessment & Plan (1) Facial infection: (2) Bacterial oral infection: (3) Acute dentin caries: History of Present Illness History of Present Illness Oral Maxillofacial Surgery Exam Present Complaint: I have pain/swelling/drainage from my infected lower left teeth and swollen jaw/face Symptoms have been ongoing for a while but infection started yesterday Admitted today for IV antibiotics and I&D Laurie is a 60-year-old white female patient has had a progressive toothache for 3 days. She denies any trauma. She initially noticed swelling on her left lower jaw Thursday. It became worse on Thursday. She tried to use cold compresses on the area throughout the day on Thursday hopes it would resolve. Her pain increased. She denies any fevers or chills. She woke this morning with increased swelling in her lower jaw and significant discomfort. She is having difficulty opening her jaw secondary to discomfort in the mandible. She denies any difficulty swallowing. No difficulty with breathing or speech. The pain is now steady and severe and radiates to the cheek. She has been unable to see a dentist. Denies chills, sweats, or fever. No naus ea or vomiting. There is a foul taste. Pain is 5/10. Oral Exam: Finding-Infected # 18 associated with a grossly carious tooth, tender and swollen gingival tissue with deep pocket formation.Tooth # 18 is the cause and removal is clinical indicated. In addition there is a fractured upper left # 6. Teeth # 7,8,9,10 are ground down to the gum line and will need extraction in the future of extensive dental reconstruction Large left submandibular/vestibular infection requiring hospital admission, I&D and extraction of # 18 Imaging: CT was reviewed, there were no abnormal findings other then the impacted # 32, carious # 18, fractured # 6 The TMJ are well positioned and no evidence of bony pathology. The sinus, supporting bone all WNL There is mild enlargement of the left submandibular salivary gland with mild adjacent soft tissue stranding. There is subcutaneous edema of the left jaw. There is a 2.8 x 0.3 cm collection of fluid along the lateral cortex of the left mandibular body, likely an abscess. No definite foreign body is seen. There are scattered small lymph nodes without overt adenopathy No fracture is identified. No focal osseous lesion is noted. There is no definite sign of osteomyelitis. There is mild maxillary sinus mucosal thickening. The remainder of the paranasal sinuses appear clear without significant mucosal thickening, fluid, retention cyst, or mass. The ostiomeatal units are narrowed by mucosal thickening but patent bilaterally. The mastoid air cells appear clear The orbits appear unremarkable. No foreign body is seen. The nasal septum is deviated. No definite nasal polyp is noted Impression: 1. 2.8 x 0.3 cm suspected abscess along the lateral surface of the left mandible (tooth # 18 radiolucent lesion with cortical break) 2. Suspected mild inflammation of the left submandibular salivary gland and cellulitis of the left cheek Soft tissue: The floor of the mouth and left submandibular area is swollen secondary to abscessed # 18. The tongue, hard/soft palate, posterior pharyngeal area all with in normal gardner its, no pathology or abnormal findings noted. No lesions noted that require follow up or Bx. Oral Care: Overall oral care is fair/poor Occlusion: Class I TMJ exam: No pop, clicking, pain, good ROM, No history of TMJ injury or dysfunction Periodontal exam: There is moderate gingival tissue pathology with evidence of periodontal pathology. Head/Neck exam: Left submandibular space swelling and left cheek Neck is supple, FROM, Able to extend and flex neck w/o difficulty, no other masses, no other abnormalities, no airway issues, no evidence of sleep apnea. Treatment Plan: Set up with general anesthesia in hospital due to complexity of the procedure I&D left submandibular space infection extraction # 18 and # 6 I reviewed the treatment plan and consent with the patient Understanding was expressed. Time was given for questions regarding the surgery, risks and post op care. Discussed alternative to treatment--procedure as planned, Do not do surgery The following teeth are decayed and fractured and removal is indicated Plan for OR tomorrow Aug 14 [place] -extraction of # 18 and fractured # 6 with I&D left side Risks discussed: Bleeding,Pain,swelling,infection, dry socket, delayed healing, nerve injury to face,lips,tongue,chin area which could be permanent (rare). TMJ, jaw stiffness, change in bite (rare), ear pain (referred). Sinus problems like fistula or infection. Need to leave a small root fragment in place to avoid injury to nerve or sinus. Relationship of wisdom teeth to nerve/sinus and risk of jaw fracture. Home care reviewed: follow up care with Dr Marroquin. need for dental care diet=[id number] dental. Discussed activity level, driving/work while on Rx pain Meds. Surgery to be set up Thursday in OR Allergies Allergy/AdvReac Type Severity Reaction Status Date / Time erythromycin base AdvReac Unknown Nausea Verified 08/10/25 10:45 simvastatin AdvReac Unknown MYALGIAS Verified 08/10/25 10:45 Home Medications Medication Instructions Recorded Confirmed Type blood sugar diagnostic #100 ea 05/09/22 08/13/25 Rx Flutter Valve #1 ea 03/02/23 08/13/25 Rx albuterol sulfate 90 mcg/actuation 2 puff inhalation QID PRN 09/17/23 08/13/25 Rx aerosol inhaler (Ventolin HFA) shortness of breath or wheezing #6.7 grams mecobalamin (vitamin B12) 1,000 1,000 mcg PO DAILY 04/28/24 08/13/25 History mcg chewable tablet atorvastatin 40 mg tablet 40 mg PO DAILY #90 tabs 09/16/24 08/13/25 Rx metformin 1,000 mg tablet 1,000 mg PO BID #180 tabs 10/03/24 08/13/25 Rx dulaglutide 1.5 mg/0.5 mL See Rx Instructions subcut 01/04/25 08/13/25 Rx subcutaneous pen injector .COMPLEX #6 mL fluticasone fur. 100 mcg-umeclid 1 inh inhalation DAILY #3 Inhalers 01/04/25 08/13/25 Rx 62.5 mcg-vilant 25 mcg inhalat.powder (Trelegy Ellipta) aspirin 81 mg tablet 81 mg PO DAILY #90 tabs 08/10/25 08/13/25 Rx Patient History Medical History (Updated 08/13/25 @ 10:56 by Steven Paulino PA-C) Migraines Asthma-COPD overlap syndrome well controlled w/ daily inhaler Hx of migraines HX- no issues > 22 yrs Hyperlipidemia Diabetes Surgical History Hx of shoulder surgery RIGHT Hx of colonoscopy History of dilatation and curettage Family History Mother Myocardial infarction Asthma Hypertension Mother Chronic renal failure Coronary heart disease Diabetes Myocardial infarction Grandmother (Maternal) Cancer Brother Diabetes Hypertension Grandmother (Paternal) Hodgkins disease Father Hypertension Hypercholesterolemia Denies family history of Ovarian cancer Prostate cancer Breast cancer Colorectal cancer Social History Smoking Status: Current every day smoker Tobacco Type: Cigarettes Age Started Using Tobacco: 15; packs per day: 1; Cigarettes Per Day: 17 per day - advised; Second Hand Exposure: No; Do You Dip or Chew Tobacco: No; Hx Alcohol Use: No Hx Substance Use: No Preferred Language: Lebanese Communication Ability: Effective Visual Impairment: No Limitations Hearing Ability: Normal Consumer Safety Officer Required: No Beliefs That Will Affect Care: None marital status: Single Current Living Situation: Significant Other current occupational status: employed Feels Safe at Home: Yes Childhood Exposure to Second-Hand Smoke: No Diet: diabetic and regular caffeine: Yes Dental Care, Regularly: No Physical Activity Frequency: Daily Seatbelt Use: always Sunscreen Use: Yes Assistive Devices: Glasses Results & Data Vital Signs (Past 12 Hours) Vital Signs Temp Pulse Pulse Resp BP BP Pulse Ox 08/13/25 09:57 93 H 16 119/72 97 08/13/25 07:34 36 C L 113 H 18 106/67 95 O2 Del Method 08/13/25 09:57 Room Air 08/13/25 07:34 Room Air PG Care Time/CCT Total # of Minutes Spent Total Time Spent with Patient: Total time spent is greater than 50% in coordination of care (as documented) at patient's floor/unit and/or counseling patient: Coding Level of Care Code 34243 IN/OBS CONSULT LVL 2,35M Diagnoses Facial infection L08.9 Bacterial oral infection K12.1; B96.89 Acute dentin caries K02.9 CPT Codes DRAINAGE OF MOUTH LESION - 15343 ([id number]) REM IMP TOOTH W MUCOPER FLP - [id number] ([id number])
[2025-08-13] MEDS: NICOTINE 14 MG/24 HR PATCH TD STA (11:11)
--- NOTE | 2025-08-13 12:12 | XRay Report ---
Technique: 2 frontal views of the chest were obtained Findings: There are no confluent pulmonary infiltrates. The heart size is within normal limits. No pleural effusion or pneumothorax is seen. There is no definite pulmonary nodule. No fracture is noted. No foreign body is seen Impression: No active disease Electronically signed by Mich Spencer 08-13-2025 12:11 PM
[2025-08-13] MEDS ORDERED: CARBOHYDRATES FOR HYPOGLYCEMIA PO PRN (12:49)
[2025-08-13] MEDS ORDERED: GLUCOSE 40% GEL 15 GM TUBE PO PRN (12:49)
[2025-08-13] MEDS ORDERED: ONDANSETRON INJ 2 MG/ML 2 ML VIAL IV PRN (12:49)
[2025-08-13] MEDS ORDERED: ALBUTEROL HFA 8 GM INHALER INH PRN (12:49)
[2025-08-13] MEDS ORDERED: MELATONIN 3 MG TAB PO PRN (12:49)
[2025-08-13] MEDS ORDERED: GLUCOSE 10 TAB/TUBE PO PRN (12:49)
[2025-08-13] MEDS ORDERED: DEXTROSE 50% 50 ML SYRINGE IV PRN (12:49)
[2025-08-13] MEDS ORDERED: GLUCAGON FOR INJ 1 MG VIAL SQ PRN (12:49)
[2025-08-13] MEDS: ACETAMINOPHEN 1,000 MG/100 ML VIAL IV PRN (13:20)
[2025-08-13] MEDS: INSULIN ASPART PER UNIT CHARGE SC SCH (15:47)
[2025-08-13] MEDS ORDERED: MoRPHine SULFATE 2 MG/ML CARP IV PRN (15:50)
[2025-08-13] MEDS: KETOROLAC TROMETHAMINE 15 MG/ML VIAL IV PRN (17:35)
[2025-08-13] MEDS: AMPICILLIN/SULBACTAM SOD 3,000 MG/100 ML BAG IV SCH (17:35)
[2025-08-13] MEDS ORDERED: Nursing to Pharmacy Communication SCH (23:30)
[2025-08-14] MEDS: INSULIN ASPART PER UNIT CHARGE SC SCH ×2 (00:21→17:07)
[2025-08-14] MEDS: BUPIVACAINE/EPINEPHRINE 0.5% 1:200,000 1.8 ML CARP ONE (01:08)
[2025-08-14] MEDS: LACTATED RINGER'S 1,000 ML IV SCH (05:50)
[2025-08-14 06:47] LABS: Hematocrit (blood only) 37.2 % (37.0-47.0); Hemoglobin 12.7 g/dL (12.0-16.0); Immature Granulocytes # (auto) 0.01 K/uL (0.01-0.20); Immature Granulocytes % (auto) 0.2 %; Mean Corpuscular Hemoglobin 31.8 pg (25.0-34.0); Mean Corpuscular Volume 93.2 fL (80.0-100.0); Platelet Count 214 K/uL (130-400); RDW Standard Deviation 45.1 fL (36.4-46.3); Red Blood Count 3.99 M/uL (4.20-5.40); White Blood Count 6.04 K/ul (4.8-10.8)
[2025-08-14 07:03] LABS: Anion Gap 6.0 (3-11); Blood Urea Nitrogen 8.0 mg/dl (6-23); Calcium 8.6 mg/dl (8.6-10.3); Carbon Dioxide 28.0 mmol/L (21-32); Chloride 107.0 mmol/L (98-107); Creatinine Clr Calc Pharmacy 83.8 ml/min; Glucose 101.0 mg/dl (70-99(Fasting)); Potassium 3.4 mmol/L (3.5-5.1); Sodium 141.0 mmol/L (136-145)
[2025-08-14] MEDS: ATORVASTATIN 40 MG TAB PO SCH (07:44)
[2025-08-14] MEDS: CYANOCOBALAMIN (B-12) 500 MCG TABLET PO SCH (07:44)
[2025-08-14] MEDS: NICOTINE 14 MG/24 HR PATCH TD SCH (07:57)
[2025-08-14] MEDS: REMOVE NICODERM PATCH SCH (07:57)
[2025-08-14] MEDS: UMECLIDINIUM/VILANTEROL 62.5/25MCG 7 PUFFS/INHALER INH SCH (07:58)
[2025-08-14] MEDS: FLUTICASONE FUROATE 100MCG 14 PUFFS/INHALER INH SCH (07:58)
[2025-08-14] MEDS ORDERED: NON-FORMULARY MEDICATION (Fluticasone-Umeclidin-Vilanter [Trelegy Ellipta] 100-62.5-25 mcg INH SCH (09:00)
[2025-08-14] MEDS ORDERED: DEXAMETHASONE SOD INJ 4 MG/ML VIAL ONE (11:07)
[2025-08-14] MEDS ORDERED: ROCURONIUM BROMIDE 10 MG/ML 5 ML VIAL IV ONE (11:07)
[2025-08-14] MEDS ORDERED: ONDANSETRON INJ 2 MG/ML 2 ML VIAL ONE (11:07)
[2025-08-14] MEDS ORDERED: MIDAZOLAM HCL 1 MG/ML 2ML VIAL ONE (11:07)
[2025-08-14] MEDS ORDERED: LIDOCAINE 2% 2 ML VIAL/AMP(20MG/ML) INFIL ONE (11:07)
[2025-08-14] MEDS ORDERED: PROPOFOL IV EMULSION 10 MG/ML 20 ML VIAL IV ONE (11:07)
[2025-08-14] MEDS ORDERED: SUCCINYLCHOLINE CHLORIDE 20 MG/ML 10 ML VIAL IV ONE (11:24)
--- NOTE | 2025-08-14 11:24 | History & Physical Bridge Note ---
Date of Service August 14, 2025 History & Physical Bridge Note I have examined the patient, reviewed the History & Physical and in the interval since the performance of the History & Physical I have noted the following changes of clinical significance: no changes noted OK for the planned procedure
--- NOTE | 2025-08-14 11:28 | Anesthesiology Consultation ---
Date of Service August 14, 2025 Assessment & Plan Chart Review Chart Review: Acceptable Risk for Surgery Consults Requested none History Surgery Operation Date: 08/14/25 09:25 Proposed Procedures p Left Sided Facial Incision and Drainage - Jose Marroquin DMD s Extraction of Teeth #6, 18 - Jose Marroquin, DMD Height/Weight Height: 5 ft 6 in Weight: 68.1 kg Allergies Allergy/AdvReac Type Severity Reaction Status Date / Time simvastatin AdvReac Intermediate MYALGIAS Verified 08/14/25 11:12 erythromycin base AdvReac Mild Nausea Verified 08/14/25 11:12 Medications Home Medications Medication Instructions Recorded Confirmed Last Taken blood sugar diagnostic #100 ea 05/09/22 08/13/25 Unknown Flutter Valve #1 ea 03/02/23 08/13/25 Unknown albuterol sulfate 90 mcg/actuation 2 puff inhalation QID PRN 09/17/23 08/13/25 Unknown aerosol inhaler (Ventolin HFA) shortness of breath or wheezing #6.7 grams mecobalamin (vitamin B12) 1,000 1,000 mcg PO DAILY 04/28/24 08/13/25 08/10/24 mcg chewable tablet atorvastatin 40 mg tablet 40 mg PO DAILY #90 tabs 09/16/24 08/13/25 Unknown metformin 1,000 mg tablet 1,000 mg PO BID #180 tabs 10/03/24 08/13/25 Unknown dulaglutide 1.5 mg/0.5 mL See Rx Instructions subcut 01/04/25 08/13/25 Unknown subcutaneous pen injector .COMPLEX #6 mL fluticasone fur. 100 mcg-umeclid 1 inh inhalation DAILY #3 Inhalers 01/04/25 08/13/25 Unknown 62.5 mcg-vilant 25 mcg inhalat.powder (Trelegy Ellipta) aspirin 81 mg tablet 81 mg PO DAILY #90 tabs 08/10/25 08/13/25 Unknown Active Medications Generic Name Dose Route Start Last Admin Trade Name Freq PRN Reason Stop Dose Admin Atorvastatin Calcium 40 mg 08/14/25 09:00 08/14/25 07:44 Atorvastatin 40 Mg Tab PO 09/13/25 08:59 Not Given DAILY SCOTT Cyanocobalamin 1,000 mcg 08/14/25 09:00 08/14/25 07:44 Cyanocobalamin (B-12) 500 Mcg Tablet PO 09/13/25 08:59 Not Given DAILY SCOTT Fluticasone Furoate 1 puffs 08/14/25 09:00 08/14/25 07:58 Fluticasone Furoate 100mcg 14 Puffs/Inhaler INH 09/13/25 08:59 1 puffs DAILY SCOTT Administration Lactated Ringer's 1,000 mls @ 80 mls/hr 08/14/25 06:00 08/14/25 05:50 Lr IV 08/14/25 18:29 80 mls/hr .[id number] SCOTT Administration Ampicillin Sodium/Sulbactam Sodium 3,000 mg in 100 mls @ 200 mls/hr 08/13/25 16:00 08/14/25 10:11 Unasyn IV 08/23/25 15:59 Infused Q6H SCOTT Infusion Acetaminophen 1,000 mg in 100 mls @ 400 mls/hr 08/13/25 12:49 08/13/25 13:35 Ofirmev IV 08/16/25 12:48 Infused Q8H PRN Infusion Fever/Mild Pain Insulin Aspart 0 units 08/14/25 00:00 08/14/25 05:55 Insulin Aspart Per Unit Charge SC 09/13/25 00:00 Not Given Q6 SCOTT Ketorolac Tromethamine 10 mg 08/13/25 15:50 08/14/25 07:55 Ketorolac Tromethamine 15 Mg/Ml Vial IV 08/18/25 15:49 10 mg Q6H PRN Administration Pain, second line Miscellaneous 1 each 08/14/25 08:59 08/14/25 07:57 Remove Nicoderm Patch N/A 09/13/25 08:58 1 each DAILY@0859 SCOTT Administration Nicotine 1 patch 08/14/25 09:00 08/14/25 07:57 Nicotine 14 Mg/24 Hr Patch TD 09/13/25 08:59 1 patch QAM SCOTT Administration Umeclidinium/Vilanterol 1 puffs 08/14/25 09:00 08/14/25 07:58 Umeclidinium/Vilanterol 62.5/25mcg 7 Puffs/Inhaler INH 09/13/25 08:59 1 puffs DAILY SCOTT Administration NPO Date Last Intake of Fluids: 08/13/25 Time Last Intake of Fluids: 23:00 Date Last Intake of Solids: 08/12/25 Time Last Intake of Solids: 17:00 Past Medical History Medical History (Updated 08/13/25 @ 10:56 by Steven Paulino PA-C) Migraines Asthma-COPD overlap syndrome well controlled w/ daily inhaler Hx of migraines HX- no issues > 22 yrs Hyperlipidemia Diabetes Past Family History Family History Mother Myocardial infarction Asthma Hypertension Mother Chronic renal failure Coronary heart disease Diabetes Myocardial infarction Grandmother (Maternal) Cancer Brother Diabetes Hypertension Grandmother (Paternal) Hodgkins disease Father Hypertension Hypercholesterolemia Denies family history of Ovarian cancer Prostate cancer Breast cancer Colorectal cancer Past Surgical History Surgical History Hx of shoulder surgery RIGHT Hx of colonoscopy History of dilatation and curettage Social History Smoking Status: Current every day smoker Smoking cigarettes per day: 17 per day - advised Do You Dip or Chew Tobacco: No Hx Alcohol Use: No Hx Substance Use: No substance use type: does not use Physical Exam Vital Signs Last Vital Signs Temp 37 C 08/14/25 11:13 Pulse 76 08/14/25 11:13 Resp 20 08/14/25 11:13 BP 130/74 08/14/25 11:13 Pulse Ox 93 08/14/25 11:13 O2 Del Method Room Air 08/14/25 11:13 Testing Laboratory Results 08/14/25 06:16 08/14/25 06:16 08/14/25 08/14/25 08/14/25 11:07 05:47 00:11 POC Glucose 101 H 99 90
[2025-08-14] MEDS ORDERED: ONDANSETRON INJ 2 MG/ML 2 ML VIAL IV PRN (11:29)
[2025-08-14] MEDS ORDERED: PROMETHAZINE HCL 6.25 MG in SODIUM CHLORIDE 0.9% 50 ML IV PRN (11:29)
[2025-08-14] MEDS ORDERED: HYDROmorphone INJ 2 MG/ML SYR/VIAL IV PRN (11:29)
[2025-08-14] MEDS ORDERED: ATROPINE SULFATE 0.1 MG/ML 10ML SYR IV PRN (11:29)
[2025-08-14] MEDS ORDERED: SUGAMMADEX SODIUM 200 MG/2 ML VIAL IV ONE ×2 (12:15→12:22)
--- NOTE | 2025-08-14 12:39 | Post Operative Brief Note ---
PG Immediate Post Op with CF Date of Surgery August 14, 2025 Pre & Post Diagnosis Operation Date: 08/14/25 09:25 Pre-Op Diagnosis: DENTAL ABSCESS Post-Op Diagnosis: DENTAL ABSCESS I identified the patient and participated in the time-out.: Yes Procedure Operation Date: 08/14/25 09:25 Actual Procedures p Left Sided Facial Incision and Drainage(Left) - Jose Marroquin DMD s Extraction of Teeth #6, 18(Left) - Jose Marroquin DMD Surgeon Jose Marroquin DMD Cfd Engineer none Estimated Blood Loss 4 Findings Consistent with Post-Op Diagnosis grossly swollen and carious / abscessed teeth Specimens Specimen Description: no specimen per physician Complications none Disposition Accompanied Patient To Recovery: Yes
--- NOTE | 2025-08-14 13:15 | Anesthesiology Progress Note ---
Date of Service August 14, 2025 Anesthesia Post Procedure Vital Signs Vital Signs: Temp Pulse Pulse Resp BP Pulse Ox O2 Del Method 08/14/25 13:09 36.5 C 80 18 125/84 94 Room Air 08/14/25 12:55 36.9 C 82 16 127/80 95 Room Air 08/14/25 12:45 80 14 124/71 99 Oxymask 08/14/25 12:37 36.4 C L 91 H 14 124/81 98 Oxymask 08/14/25 11:13 37 C 76 20 130/74 93 Room Air 08/14/25 07:51 36.9 C 78 18 138/60 92 Room Air 08/13/25 23:17 36.9 C 79 18 119/75 93 Room Air 08/13/25 13:50 Room Air 08/13/25 13:43 36.8 C 91 H 18 116/74 96 Room Air O2 Flow Rate 08/14/25 13:09 08/14/25 12:55 08/14/25 12:45 4 08/14/25 12:37 6 08/14/25 11:13 08/14/25 07:51 08/13/25 23:17 08/13/25 13:50 08/13/25 13:43 Pain Intensity Left Jaw: Pain Intensity: 3 Transfer of Care Handoff Completed per policy Notes Mental Status: alert / awake / arousable and participated in evaluation Patient Amnestic to Procedure: Yes Nausea / Vomiting: adequately controlled Pain: adequately controlled Airway Patency, RR, SpO2: stable & adequate BP & HR: stable & adequate Hydration State: stable & adequate Anesthetic Complications: no major complications apparent
[2025-08-14] MEDS: BUPIVACAINE/EPINEPHRINE 0.5% MPF 1:200,000 10 ML VIAL ONE (13:32)
--- NOTE | 2025-08-14 14:32 | Electrocardiogram Report ---
Test Reason : Blood Pressure : */* mmHG Vent. Rate : 87 BPM Atrial Rate : 87 BPM P-R Int : 116 ms QRS Dur : 78 ms QT Int : 366 ms P-R-T Axes : 59 59 75 degrees QTcB Int : 440 ms Normal sinus rhythm Low voltage QRS Borderline ECG No previous ECGs available Confirmed by Rory Starks ([id number]) on 08/14/2025 2:31:44 PM Referred By: REFERRED SELF Confirmed By: Rory Starks
[2025-08-14] MEDS: POTASSIUM CHLORIDE CRTAB 20 MEQ TABCR PO STA (17:09)
--- NOTE | 2025-08-14 17:12 | Hospitalist Progress Note ---
Date of Service August 14, 2025 Assessment & Plan (1) Mandibular abscess: (2) Acute dentin caries: (3) Type 2 diabetes mellitus: (4) History of tobacco use: (5) Asthma-COPD overlap syndrome: Plan This patient is a 60-year-old female who presented on 08/13 with a left mandibular tooth abscess. #Mandibular abscess Face CT revealed a 2.8 x 0.3 cm abscess along the lateral surface of the left mandible, with salivary gland inflammation and left cheek cellulitis Oromaxillary facial consult with recommendation for left submandibular I&D space infection and extraction #18/#19 Preop EKG with no acute changes Unasyn 3000 mg IV q6h IV pain control PRN, add oral Tramadol PRN IV antiemetics PRN s/p left sided facial incision and drainage (left) and extraction of teeth #6, #[address] Marroquin on 08/14/25 #T2DM Last A1c at 6.3% on 06/14/2025 Hold metformin, dulaglutide SSI; with target BSG range 110-140mg/dL, CF 45, carb ratio 15 BSG ACHS, with plan to convert to every 6 hours once she is made n.p.o. T2DM diet BSG ACHS Adjust regimen as needed #H/o coronary and aortic atherosclerosis No h/o stents, per patient consider resumption of aspirin on 08/15/25 #Tobacco use Current everyday tobacco cigarette smoker; 1 PPD Nicotine patch while inpatient Continue to encourage cessation #AsthmaCOPD overlap syndrome Continue home inhalers #HLD Continue atorvastatin Disposition: [facility]mit to [facility]. d/c tomorrow VTE PPx: Hold chemical DVT PPx prior to procedure; SCDs Note: Patient requesting a work excuse upon discharge. She works as a business services sales representative and is requesting off Thursday and Thursday of this week. Admission and Anticipated Discharge Date Admission Date: August 13, 2025 Supervising Physician Co-Signing Physician Notes The patient was not seen by me. The chart was reviewed. Case discussed with HEBER De Anda. Agree with assessment and plan. Subjective Returned from OR and is awake, alert and oriented. C/o left sided facial pain and mouth pain. Review of Systems Review of Systems: All systems reviewed & are unremarkable except as noted in Subjective Physical Exam Physical Exam: GENERAL APPEARANCE: A&O. Sitting comfortably in bed. NAD. SKIN: Normal color without rashes or lesions. Normal turgor. HEENT: Head AT/NC. Buccal mucosa is moist and pink. Gauze present to left lower molar area. Submandibular lymphadenopathy and left facial swelling without erythema. NECK: No jugular venous distention. No thyroid enlargement. There is no lymphadenopathy. HEART: RRR without m/g/r. LUNGS: Normal inspiratory effort. CTA without w/r/r. ABDOMEN: No guarding or rigidity. Normoactive BS in all four quadrants. Abdomen soft and NT. MSK: No bony gross/deformities throughout. ROM intact. EXTREMITIES: No edema, No peripheral cyanosis. Neuro: CN 2-12 grossly intact. No focal neuro deficits PSYCHIATRIC: Normal affect. Eye contact is good. Speech is normal rate and content. Responses are appropriate. Results & Data Results & Data Vital Signs (Past 12 Hours) Vital Signs Temp Pulse Pulse Resp BP Pulse Ox O2 Del Method 08/14/25 15:35 36.8 C 78 18 126/79 93 Room Air 08/14/25 13:09 36.5 C 80 18 125/84 94 Room Air 08/14/25 12:55 36.9 C 82 16 127/80 95 Room Air 08/14/25 12:45 80 14 124/71 99 Oxymask 08/14/25 12:37 36.4 C L 91 H 14 124/81 98 Oxymask 08/14/25 11:13 37 C 76 20 130/74 93 Room Air 08/14/25 07:51 36.9 C 78 18 138/60 92 Room Air O2 Flow Rate 08/14/25 15:35 08/14/25 13:09 08/14/25 12:55 08/14/25 12:45 4 08/14/25 12:37 6 08/14/25 11:13 08/14/25 07:51 Laboratory Results Labs reviewed: CBC, BMP PG Care Time/CCT Total # of Minutes Spent Total Time Spent with Patient: Total time spent is greater than 50% in coordination of care (as documented) at patient's floor/unit and/or counseling patient: Coding Level of Care Code 60370 SUB INP/OBS CARE 2/35MIN Diagnoses Mandibular abscess M27.2 Acute dentin caries K02.9 Type 2 diabetes mellitus without complication, without long-term current use of insulin E11.9 Diabetes mellitus complication status: without complication Diabetes mellitus care home insulin use: without manager long term care use History of tobacco use Z87.891 Asthma-COPD overlap syndrome J44.89 (3) Type 2 diabetes mellitus Diabetes mellitus complication status: without complication Diabetes mellitus manager long term care insulin use: without care home use Qualified Code(s): E11.9 - Type 2 diabetes mellitus without complications
[2025-08-14] MEDS: CHLORHEXIDINE GLUCONATE 0.12% 480 ML MT PRN (21:07)
[2025-08-15 07:14] VITALS: BP 109/69; PULSE 72; RESP 16; TEMP 98.1; O2SAT 93
--- NOTE | 2025-08-15 13:23 | Discharge Summary ---
Discharge Summary Date of Service August 15, 2025 Principal Dx & Hospital Course #1 = Principal Diagnosis (1) Mandibular abscess: (2) Acute dentin caries: (3) Type 2 diabetes mellitus: (4) History of tobacco use: (5) Asthma-COPD overlap syndrome: Plan This patient is a 60-year-old female who presented on 08/13 with a left mandibular tooth abscess. Patient doing well on day of discharge with tolerable pain with Tramadol prn dosing and is able to tolerate soft, easy to chew diet. Left-sided facial swelling much improved with decreased trismus. She has been afebrile without worsening signs of mandibular infection. She will be discharged on oral Augmentin and prn Tramadol for pain. F/u with Dr. Hi within 10-14 days of discharge. #Mandibular abscess Face CT revealed a 2.8 x 0.3 cm abscess along the lateral surface of the left mandible, with salivary gland inflammation and left cheek cellulitis Oromaxillary facial consult with recommendation for left submandibular I&D space infection and extraction #18/#19 Preop EKG with no acute changes Unasyn 3000 mg IV q6h IV pain control PRN, add oral Tramadol PRN IV antiemetics PRN s/p left sided facial incision and drainage (left) and extraction of teeth #6, #[address] Hi on 08/14/25 d/c on Augmentin and Tramadol, f/u with Dr. Hi in 10-14 days post discharge #T2DM Last A1c at 6.3% on 06/14/2025 Hold metformin, dulaglutide SSI; with target BSG range 110-140mg/dL, CF 45, carb ratio 15 BSG ACHS T2DM diet BSG ACHS Adjust regimen as needed #H/o coronary and aortic atherosclerosis No h/o stents, per patient may resume aspirin on discharge #Tobacco use Current everyday tobacco cigarette smoker; 1 PPD Nicotine patch while inpatient Continue to encourage cessation #AsthmaCOPD overlap syndrome Continue home inhalers #HLD Continue atorvastatin Disposition: d/c home VTE PPx: chemical DVT proph held in setting of surgical intervention, may resume aspirin on d/c Work excuse provided to patient for 08/14/25 and 08/15/25 Admission HPI Per Admitting Provider Mrs. Love is a 60-year-old female with PMH of T2DM, HLD, depression, and tobacco use. 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 Patient first noticed the pain and swelling in her left lower jaw on [place] evening. Since that time, it has progressively worsened, and now the pain is starting to radiate down the side of her left anterior neck. She has been taking 4 ibuprofen tablets every 6 hours as needed for pain, and applying an ice pack to her jaw, which has been helping.. However, she notes she may have developed chills and night sweats last night became concerned. While she does not have difficulty swallowing, she has been trying to eat soft foods, and only drink fluids. She has not had anything to eat today. She denies any respiratory distress or difficulty breathing. Patient has not been into see a dentist in the past 4 to 5 years. She did not take her regular morning medicine today, as she was unsure what was going to happen. Only recent medication change is that her aspirin was decreased from 325 mg daily to 81 mg daily. Patient is unsure why she takes aspirin, but believes it is due to his smoking. Patient is a current everyday tobacco cigarette smoker; 1 PPD. She denies chewing tobacco. Occupation: Schoolbus delivery driver/supervisor; requesting work excuse on discharge. Patient reports she has not allergy to erythematous and; denies history of allergies to penicillins. Patient's vitals are stable at time of admission. ED course: Unasyn 3000 mg IV x 1 ROS: Patient endorses left jaw pain, chills, headache, dry cough (attributes to smoking). Patient denies fever, dizziness, lightheadedness, tinnitus, changes in vision, difficulty swallowing, neck pain, chest pain, chest palpitations, SOB, ADAME, pleuritic CP, abdominal pain, or N/V/D. Discharge Exam GENERAL APPEARANCE: A&O. Sitting comfortably in bed. NAD. SKIN: Normal color without rashes or lesions. Normal turgor. HEENT: Head AT/NC. Buccal mucosa is moist and pink. Minimal left sided facial swelling noted. NECK: No jugular venous distention. No thyroid enlargement. There is no lymphadenopathy. HEART: RRR without m/g/r. LUNGS: Normal inspiratory effort. CTA without w/r/r. ABDOMEN: No guarding or rigidity. Normoactive BS in all four quadrants. Abdomen soft and NT. MSK: No bony gross/deformities throughout. ROM intact. EXTREMITIES: No edema, No peripheral cyanosis. Neuro: CN 2-12 grossly intact. No focal neuro deficits PSYCHIATRIC: Normal affect. Eye contact is good. Speech is normal rate and content. Responses are appropriate. Discharge Plan Discharge Items Patient Disposition: Home - Self-Care Reason For Visit: DENTAL ABSCESS Discharge Diagnosis: FACIAL INFECTION LEFT SIDE Condition on Discharge: Good Activity: Resume your previous activity Lifting: Gradually increase as tolerated Bathing: No limitations Exercise/Sports: Gradually increase as tolerated Driving/Machine Use: Resume 1 day after discharge Weightbearing: Full weightbearing Non-emergency contact: Surgeon Call non-emergency contact if: you have any medication questions, your symptoms worsen, your temperature is above 101, your temperature is above 101.5, your wound has increased redness, your wound has increased drainage and your wound pain has increased Follow-up/Referrals: Rory Santiago MD [Primary Care Provider] - 08/21/25 11:00 am Jose Hi DMD [Physician] - 08/29/25 3:00 pm (follow up within 10-14 days) Diet: Regular, Full liquid and Clear liquid Diet Texture: Easy to Chew Addtl Attending Provider Instructions: Laurie, You were admitted to the hospital for a dental abscess. You underwent surgery with Dr. Hi to have the infected teeth removed. While you were hospitalized you received antibiotic through an IV to treat the infection. You are still in need of additional antibiotics, therefore a prescription will be sent to your pharmacy for oral antibiotic. The name of the antibiotic is Augmentin. You will take this medication twice a day for the next seven days. You will also be provided with a short course of as needed mild narcotic medication called Tramadol to take twice a day as needed for severe pain. You can also use as needed Tylenol and Motrin for discomfort. PLEASE SEE DR. HI'S DISCHARGE INSTRUCTIONS BELOW TO FOLLOW. You are to call Dr. Hi's office next week to arrange a follow up appointment within 10-14 days from discharge. Medications: Your medication list has been reviewed and reconciled upon discharge to ensure accuracy and continuity of care. An updated list of all your medications is included with your hospital discharge paperwork. Please review this list closely, and make note of any changes. Take your medications as instructed; do not skip a dose of your medicines. Make sure all of your doctors know every medicine you are taking (including bruh-mov-iibgtub medicines, vitamins, and supplements). Call your primary care provider before taking any new medicines (including over- the-counter medicines, vitamins, and supplements), because some of these may interact with your current medications, or may make your symptoms worse. Tell your primary care provider if you cannot afford your medications. Activity: You can do normal everyday activities as your body allows. Take rest breaks if you feel tired. Do not overexert. Stop activity if you have pain, shortness of breath or feel dizzy. Follow-up appointments: Make an appointment with your primary care physician within one week of discharge. A copy of this summary will be sent to them. Every time you see your primary care physician, or any other doctor, bring your medication list, and a list of questions. CONTACT YOUR PRIMARY CARE PROVIDER if you experience any of the following: Shortness of breath or difficulty breathing Fevers or chills Feeling tired with normal activity or experiencing dizziness or fainting Difficulty following your treatment plan, or difficulty taking medications CALL 911 OR GO TO THE EMERGENCY DEPARTMENT if you experience any of the following: Severe abdominal pain or nausea/vomiting Severe chest pain, or chest pain that radiates (moves) to your jaw or arm Sudden, severe shortness of breath or difficulty breathing Thank you for allowing us to participate in your care. ADDITIONAL ACTIVITY RECOMMENDATIONS: * Eads teeth after every meal. It is very important to keep your mouth clean to prevent infection. * Starting tonight rinse with the Peridex as directed then 2 x a day * it is very important to keep well hydrated, this prevents fever and possible dry socket pain SPECIAL CARE INSTRUCTIONS: *It is not uncommon that between day 2-4 that your swelling will be at its worst this is very normal, do not be alarmed. * Keep ice on the side of your face for the next 24 to 36 hours. This will help keep the swelling down. * After 36 hours, apply heat (hot water bottle or heating pad) for the next two days, as often as possible. * Tomorrow start rinsing your mouth with 1/2 teaspoon salt in 8 ounces warm water. This rinse should be used every 4-6 hours. * You may experience slight nausea. To prevent this, never take your medication on an empty stomach. If nauseated, take small sips of marlen dieudonne until you feel better; then you may start on applesauce and toast. * A certain amount of bleeding is to be expected. It is often possible to control mild oozing by placing folded gauze over the area and biting down for 30 minutes. If you are unable to control excessive bleeding, call Dr Hi at [phone] * You may experience some discomfort for a few days. If pain or swelling increases, Call Dr Hi * Return to the office for a follow up check up on: PLEASE DR. HI`S OFFICE TO SET UP A FOLLOW UP 10- 14 DAYS FROM THE DAY YOU WERE [phone] * office address--[address] [place] [address] . phone # [phone] Pending Studies at Discharge: No Stand-Alone Forms: [facility] Work/School Release, Smoking Cessation Medications and DC Order Prescriptions: New amoxicillin-pot clavulanate 875-125 mg tablet 1 tab PO BID 7 Days Qty: 14 0RF tramadol 50 mg tablet 50 mg PO BID PRN (Reason: pain) Qty: 6 0RF Continued atorvastatin 40 mg tablet 40 mg PO DAILY Qty: 90 3RF metformin 1,000 mg tablet 1,000 mg PO BID Qty: 180 3RF mecobalamin (vitamin B12) 1,000 mcg tablet,chewable 1,000 mcg PO DAILY albuterol sulfate [Ventolin HFA] 90 mcg/actuation HFA aerosol inhaler 2 puff INH QID PRN (Reason: shortness of breath or wheezing) Qty: 6.7 11RF (DME) blood sugar diagnostic Strip See Dose Instructions .ROUTE .MEDSUPPLY Qty: 100 5RF Dose Instruction: As directed Rx Instructions: test daily and as directed (DME) Flutter Valve Device See Rx Instructions .MEDSUPPLY Qty: 1 0RF Rx Instructions: As directed aspirin 81 mg tablet 81 mg PO DAILY Qty: 90 3RF Trelegy Ellipta 100-62.5-25 mcg blister with device 1 inh inhalation DAILY Qty: 3 3RF dulaglutide 1.5 mg/0.5 mL pen injector See Rx Instructions subcut .COMPLEX Qty: 6 3RF Rx Instructions: subcutaneously 1.5 mg subcutaneous weekly; Discharge Orders: Discharge Order (Routine); Ordered 08/15/25 Ordered By: Pamela Pfeiffer/Other Patient Handouts: Managing Type 2 Diabetes Admission Data Admit Date/Time: 08/13/25 10:44 Attending Provider: Alejandro Johnson Admit Provider: Kumar Colbert Primary Care Provider: Rory Santiago Other Providers: Kumar Colbert Other Interventions: Discharge Summary Assessment (RN) Last Done: 08/15/25 13:05 Hospital Stay Data Consultations 08/13/25 10:11 ED Decision to Admit Stat Procedures Performed Operation Date: 08/14/25 09:25 Actual Procedures p Left Sided Facial Incision and Drainage(Left) - Jose Hi DMD s Extraction of Teeth #6, 18(Left) - Jose Hi DMD Diagnostic Imagining Performed 08/13/25 08:17 CT face [CT facial bones w con] Stat Pending Results Patient Have Any Pending Studies at Discharge: No Discharge Instructions Given to Patient (Per Discharging Provider) Travis Sullivan were admitted to the hospital for a dental abscess. You underwent surgery with Dr. Hi to have the infected teeth removed. While you were hospitalized you received antibiotic through an IV to treat the infection. You are still in need of additional antibiotics, therefore a prescription will be sent to your pharmacy for oral antibiotic. The name of the antibiotic is Augmentin. You will take this medication twice a day for the next seven days. You will also be provided with a short course of as needed mild narcotic medication called Tramadol to take twice a day as needed for severe pain. You can also use as needed Tylenol and Motrin for discomfort. PLEASE SEE DR. HI'S DISCHARGE INSTRUCTIONS BELOW TO FOLLOW. You are to call Dr. Hi's office next week to arrange a follow up appointment within 10-14 days from discharge. Medications: Your medication list has been reviewed and reconciled upon discharge to ensure accuracy and continuity of care. An updated list of all your medications is included with your hospital discharge paperwork. Please review this list closely, and make note of any changes. Take your medications as instructed; do not skip a dose of your medicines. Make sure all of your doctors know every medicine you are taking (including ixgk-huj-ssbqzwd medicines, vitamins, and supplements). Call your primary care provider before taking any new medicines (including over- the-counter medicines, vitamins, and supplements), because some of these may interact with your current medications, or may make your symptoms worse. Tell your primary care provider if you cannot afford your medications. Activity: You can do normal everyday activities as your body allows. Take rest breaks if you feel tired. Do not overexert. Stop activity if you have pain, shortness of breath or feel dizzy. Follow-up appointments: Make an appointment with your primary care physician within one week of discharge. A copy of this summary will be sent to them. Every time you see your primary care physician, or any other doctor, bring your medication list, and a list of questions. CONTACT YOUR PRIMARY CARE PROVIDER if you experience any of the following: Shortness of breath or difficulty breathing Fevers or chills Feeling tired with normal activity or experiencing dizziness or fainting Difficulty following your treatment plan, or difficulty taking medications CALL 911 OR GO TO THE EMERGENCY DEPARTMENT if you experience any of the following: Severe abdominal pain or nausea/vomiting Severe chest pain, or chest pain that radiates (moves) to your jaw or arm Sudden, severe shortness of breath or difficulty breathing Thank you for allowing us to participate in your care. ADDITIONAL ACTIVITY RECOMMENDATIONS: * Eads teeth after every meal. It is very important to keep your mouth clean to prevent infection. * Starting tonight rinse with the Peridex as directed then 2 x a day * it is very important to keep well hydrated, this prevents fever and possible dry socket pain SPECIAL CARE INSTRUCTIONS: *It is not uncommon that between day 2-4 that your swelling will be at its worst this is very normal, do not be alarmed. * Keep ice on the side of your face for the next 24 to 36 hours. This will help keep the swelling down. * After 36 hours, apply heat (hot water bottle or heating pad) for the next two days, as often as possible. * Tomorrow start rinsing your mouth with 1/2 teaspoon salt in 8 ounces warm water. This rinse should be used every 4-6 hours. * You may experience slight nausea. To prevent this, never take your medication on an empty stomach. If nauseated, take small sips of marlen dieudonne until you feel better; then you may start on applesauce and toast. * A certain amount of bleeding is to be expected. It is often possible to control mild oozing by placing folded gauze over the area and biting down for 30 minutes. If you are unable to control excessive bleeding, call Dr Hi at [phone] * You may experience some discomfort for a few days. If pain or swelling increases, Call Dr Hi * Return to the office for a follow up check up on: PLEASE DR. HI`S OFFICE TO SET UP A FOLLOW UP 10- 14 DAYS FROM THE DAY YOU WERE [phone] * office address--[address] phone # [phone] Supervising Physician Co-Signing Physician Notes The patient was not seen by me. The chart was reviewed. Case discussed with HEBER De Anda. Agree with assessment and plan. Total Time Total Time Spent Total Time Spent (In Minutes): 40 minutes total Coding Level of Care Code 48205 INP/OBS DISCH >30 MIN Diagnoses Mandibular abscess M27.2 Acute dentin caries K02.9 Type 2 diabetes mellitus without complication, without long-term current use of insulin E11.9 Diabetes mellitus complication status: without complication Diabetes mellitus terminal make up operator insulin use: without terminal make up operator use History of tobacco use Z87.891 Asthma-COPD overlap syndrome J44.89
--- NOTE | 2025-09-03 11:17 | Operative Report ---
PG Post Operative Report Pre & Post Diagnosis Operation Date: 08/14/25 09:25 Pre-Op Diagnosis: DENTAL ABSCESS Post-Op Diagnosis: DENTAL ABSCESS I identified the patient and participated in the time-out.: Yes Procedure Operation Date: 08/14/25 09:25 Actual Procedures p Left Sided Facial Incision and Drainage(Left) - Jose Marroquin DMD s Extraction of Teeth #6, 18(Left) - Jose Marroquin DMD Surgeon Jose Marroquin DMD Back Up Worker none Estimated Blood Loss 4 Findings Consistent with Post-Op Diagnosis Specimens none Drains none Anesthesia Type General Complications none Disposition Accompanied Patient To Recovery: Yes Indications infection lower left Oral Exam: Finding-Infected # 18 associated with a grossly carious tooth, tender and swollen gingival tissue with deep pocket formation.Tooth # 18 is the cause and removal is clinical indicated. In addition there is a fractured upper left # 6. Teeth # 7,8,9,10 are ground down to the gum line and will need extraction in the future of extensive dental reconstruction Large left submandibular/vestibular infection requiring hospital admission, I&D and extraction of # 18 Description of Procedure Actual Procedures p Incision and Drainage Submandibular Abscess; Removal of Tooth #18 and #6 (Not Applicable) - Jose Marroquin DMD [id number] x 2 for teeth # 6 and 18 CPT 51338 Left vestibular and submandibular I&D Once cleared for surgery general anesthesia was achieved, the eyes were protected by the anesthesia dept criteria. A time out was take for patient ID, antibiotics, equipment and position verification once all agreed the procedure began. Local anesthesia using Marcaine with a vasoconstrictor ( 1.8 ml per site) given into left inferior alveolar nerve and # 6 area A throat pack was placed after the oral cavity was irrigated with saline. Once a surgical level of anesthesia was obtained and the local anesthesia was given time for the blocks the surgery was started. I turned my attention to the infection which was located in the floor of the mouth and submental area. The tongue was elevated and there was also swelling associated with tooth # 18 ( see CT scan report) Incision and Drainage Large left submandibular/vestibular infection requiring hospital admission, I&D and extraction of # 18 Using a 15 blade an incision was made in the lower left mucobuccal fold. Once the incision was made a lot of pus extruded from the site. A curved hemostat was carefully placed into the infected space along the lateral side of the lower jaw and into the submandibular space. Some further drainage was now allowed to escape. I palpated the chin and submental/submandibular area and no further drainage was expressed. The area was irrigated with at least 100 ml of NS solution. I now turned my attention to remove the # 18 tooth. Lower # 18 D7210 The full thick Muco-periosteal flap was made on the facial aspect from # 17-20. The flap was reflected to expose the the subperiosteal space the bone adjacent to # 18. The rongeur was used to remove bone, the tooth was removed with a 301 elevator, the mental nerve was intact, there was a large amount of granulation tissue on the apex and some more pus that was expressed. Upper #6 [id number] The full thick Muco-periosteal flap was made on the facial aspect from # 5-7. The flap was reflected to expose the the subperiosteal space the bone adjacent to # 6 The rongeur was used to remove bone, the tooth was removed with a 301 elevator and dental forceps. There was a large amount of granulation tissue on the apex and some more pus that was expressed. I inspected the sites to insure all bleeding was controlled. I removed the throat pack and suctioned the throat. Bilateral gauze pressure dressings were placed. All instrument and sponge count was correct. The patient was allowed to awake from the anesthesia. Once full awake the anesthesia tube was removed and the patient was taken to the recovery room with all vital sign stable. The patient tolerated the surgery very well. I will follow the patient in my office, Rx and instructions will be given upon discharge. I attest to the content of the Intraoperative Record and any orders documented therein. Any exceptions are noted below.
== END 2025-08-15 14:06 | disposition home or self-care (01) ==
LOC: EDINP 07:28 → ED 07:28 → SUATTDRO 10:44 → 3N 12:50